=== PATIENT | male | born 1970 | race Caucasian/White ===

== ENCOUNTER 2022-08-04 22:46 | Emergency (ER) | payer SELFPAY ==
[2022-08-04 22:50] VITALS: PULSE 102; O2SAT 98
[2022-08-04 22:51] VITALS: BP 140/85; PULSE 97; O2SAT 98
[2022-08-04 22:53] VITALS: BP 140/85; PULSE 93; RESP 18; TEMP 36.7; O2SAT 98; BMI 32.1
--- NOTE | 2022-08-04 22:58 | ED_ITS ---
HPI - General Adult General Chief complaint: Upper Respiratory Symptoms Stated complaint: SOB Time Seen by Provider: 08/04/22 22:51 Source: patient Mode of arrival: EMS Limitations: no limitations History of Present Illness HPI narrative: Patient is a 52-year-old male with a stated history of asthma who is brought in by BLS for evaluation of a couple days of a sore throat and a cough. No fevers. No interventions prior to arrival. He is not tried anything for his symptoms. He does not have an inhaler at home. He states that it is a productive cough with green sputum. Related Data Previous Rx's Medication Instructions Recorded benzonatate 100 mg capsule 100 mg PO TID PRN cough #14 caps 08/04/22 Allergies Allergy/AdvReac Type Severity Reaction Status Date / Time No Known Drug Allergies Allergy Verified 08/04/22 23:00 Review of Systems Constitutional Constitutional: Reports system reviewed and no additional complaints, except as documented ENT Ears, Nose, Mouth, and Throat: Reports system reviewed and no additional complaints, except as documented Cardiovascular Cardiovascular: Reports system reviewed and no additional complaints, except as documented Respiratory Respiratory: Reports system reviewed and no additional complaints, except as documented Integumentary/Breasts Skin/Breast: Reports system reviewed and no additional complaints, except as documented Hematologic/Lymphatic On Anticoagulants: No Exam Initial Vital Signs Initial Vital Signs: Vital Signs Pulse Rate 102 H 08/04/22 22:50 Pulse Oximetry 98 08/04/22 22:50 HENMT Head: normal to inspection and normocephalic Mouth: moist mucous membranes Throat: posterior oropharynx normal Resp Effort & Inspection: normal respiratory effort Auscultation: wheezes (Wheezing left-sided chest) Cardio Rate: regular rate Skin General: no rashes or lesions noted Neuro General: patient alert, patient awake and moves all extremities Course Orders Ordered: ED Orders 08/04/22 22:58 XR chest 1V Stat Discontinued Medications Albuterol (Albuterol 2.5 Mg/3 Ml Neb (Adult)) 2.5 mg INH NOW ONE Stop: 08/04/22 22:59 Last Admin: 08/04/22 23:14 Dose: 2.5 mg Documented By: CHRIS Albuterol (Albuterol Hfa Prepack) 1 box MISC SEEINSTR ONE Stop: 08/04/22 23:45 Benzonatate (Benzonatate 100 Mg Capsule) 100 mg PO NOW ONE Stop: 08/04/22 23:45 Vital Signs Vital signs: Vital Signs - 8 hr 08/04/22 22:53 08/04/22 22:50 08/04/22 22:51 Temperature 98.1 F Pulse Rate 93 H 102 H Respiratory Rate 18 Blood Pressure 140/85 140/85 Pulse Oximetry 98 98 Oxygen Delivery Method Room Air 08/04/22 22:51 08/04/22 23:00 08/04/22 23:00 Temperature Pulse Rate 97 H 93 H Respiratory Rate 13 Blood Pressure 134/85 Pulse Oximetry 98 97 Oxygen Delivery Method 08/04/22 23:30 08/04/22 23:30 Temperature Pulse Rate 99 H Respiratory Rate 18 Blood Pressure 127/82 Pulse Oximetry 99 Oxygen Delivery Method Medical Decision Making Imaging Data Chest x-ray: Radiologist's Impression: PROCEDURE:? XR CHEST 1V ? INDICATIONS:? eval for PNA ? TECHNIQUE:? One view of the chest was acquired.? ? COMPARISON:? None. ? FINDINGS:? ? Surgical changes and devices:? None.? ? Lungs and pleura:? Lungs are clear.? No pleural effusions or pneumothorax.? ? Mediastinum:? Mediastinal contours appear normal.? Heart size is normal.? ? Bones and chest wall:? No suspicious bony lesions.? Overlying soft tissues appear unremarkable.? ? IMPRESSION:? ? 1.? No acute cardiopulmonary diseas MDM Narrative Medical decision making narrative: Chest x-ray does not show any signs of pneumonia. Patient is not hypoxic. No indication for antibiotics. Potentially minimal improvement with the albuterol. No indication for admission to the hospital. Was given benzoate for the cough. Will send home with an albuterol inhaler and spacer. He was given return precautions. He expressed understanding and agreement. Discharge Plan Departure Patient Disposition: Home Clinical Impression: Cough, Shortness of breath Instructions: Cough (Alternative Therapy), Cough Activity Restrictions/Additional Instructions: Use the albuterol inhaler as needed. [facility] can [facility] when they [facility]. You were given a dose of that here in the emergency department before you were discharged. Your chest x-ray does not show any signs of pneumonia. There is no indication to do any antibiotics. Return to the emergency department for new symptoms. Prescriptions: New benzonatate 100 mg capsule 100 mg PO TID PRN (Reason: cough) Qty: 14 0RF Stand Alone Forms: Patient Portal/API
--- NOTE | 2022-08-04 22:58 | DI.RAD.S_ITS ---
PROCEDURE: XR CHEST 1V INDICATIONS: eval for PNA TECHNIQUE: One view of the chest was acquired. COMPARISON: None. FINDINGS: Surgical changes and devices: None. Lungs and pleura: Lungs are clear. No pleural effusions or pneumothorax. Mediastinum: Mediastinal contours appear normal. Heart size is normal. Bones and chest wall: No suspicious bony lesions. Overlying soft tissues appear unremarkable. IMPRESSION: 1. No acute cardiopulmonary disease. Dictated by: Og Rogers M.D. on 08/04/2022 at 23:32 Approved by: Og Rogers M.D. on 08/04/2022 at 23:33
[2022-08-04 23:00] VITALS: BP 134/85; PULSE 93; RESP 13; O2SAT 97
[2022-08-04] MEDS: ALBUTEROL 2.5 MG/3 ML NEB (ADULT) INH (23:14)
[2022-08-04 23:30] VITALS: BP 127/82; PULSE 99; RESP 18; O2SAT 99
[2022-08-04] MEDS: BENZONATATE 100 MG CAPSULE PO (23:57)
[2022-08-04] MEDS: ALBUTEROL HFA PREPACK 1 BOX MISC (23:58)
[2022-08-05] VITALS: BP 138/82; PULSE 96; RESP 20; TEMP 36.7; O2SAT 98
== END 2022-08-05 00:01 | disposition home or self-care (01) ==
PROVIDERS: Emergency Provider Emergency Medicine
DX: R05.9 Cough, unspecified (principal); R06.02 Shortness of breath
CPT/HCPCS: 71045; 94640; 99283; J7613